=== PATIENT | female | born 1990 | race African-American/Black ===

== ENCOUNTER 2019-10-12 17:46 | Emergency (ER) | payer MEDICAID ==
[2019-10-12] MEDS ORDERED: Acetaminophen 500 MG TAB ONE (18:18)
== END 2019-10-12 18:50 | disposition home or self-care (01) ==
LOC: BURERS 17:46
DX: O98.511 Other viral diseases complicating pregnancy, first trimester (principal); B34.9 Viral infection, unspecified; Z3A.09 9 weeks gestation of pregnancy
CPT/HCPCS: 87081; 87430; 87804; 99283

== ENCOUNTER 2021-05-05 05:11 | Emergency (ER) | payer BC, MEDICAID ==
[2021-05-05] MEDS ORDERED: Ibuprofen 800 MG TAB ONE (05:44)
[2021-05-05 21:10] LABS: SARS-CoV-2 PCR by NAA Not Detected (NotDetected)
== END 2021-05-05 05:46 | disposition home or self-care (01) ==
LOC: BURERS 05:11
DX: J02.9 Acute pharyngitis, unspecified (principal); Z20.822 Contact with and (suspected) exposure to COVID-19; I10 Essential (primary) hypertension; Z79.899 Other long term (current) drug therapy
CPT/HCPCS: 99283; U0003; U0005

== ENCOUNTER 2024-06-11 08:54 | Emergency (ER) | payer BC, OTHER | END 2024-06-11 09:32 | disposition home or self-care (01) | LOC: BURERS 08:54 | DX: S93.601A Unspecified sprain of right foot, initial encounter (principal); S86.911A Strain of unspecified muscle(s) and tendon(s) at lower leg level, right leg, initial encounter; M72.2 Plantar fascial fibromatosis; I10 Essential (primary) hypertension; X58.XXXA Exposure to other specified factors, initial encounter | CPT/HCPCS: 99284 ==